=== PATIENT | male | born 1980 | race African-American/Black ===

== ENCOUNTER 2023-10-01 14:18 | Emergency (ER) | payer OTHER ==
[2023-10-01 14:30] VITALS: BP 137/82; PULSE 86; RESP 18; TEMP 98.2; BMI 33.7
== END 2023-10-01 17:54 | disposition home or self-care (01) ==
LOC: FER 14:18
DX: M22.91 Unspecified disorder of patella, right knee (principal)
CPT/HCPCS: 73562-TC-RT-FY; 99283-25